=== PATIENT | female | born 1975 | race Caucasian/White ===

== ENCOUNTER 2016-09-20 22:18 | Emergency (ER) | payer MEDICAID ==
[~2016-09-20] VITALS: Ht 177.8 cm; Wt 99.3 kg
[2016-09-20 23:28] LABS: BASOPHIL % 0.5 % (0-2); PLATELET COUNT 295 x10^3mcL (130-400); RED CELL DISTRIBUTION WIDTH 14.5 % (11.5-14.5)
[2016-09-20 23:47] LABS: ALBUMIN 3.4 g/dL (3.4-5.0); ALKALINE PHOSPHATASE 91 U/L (46-116); ALT/SGPT 38 U/L (14-59); AST/SGOT 23 U/L (15-37); BILIRUBIN TOTAL 0.2 mg/dL (0.20-1.00); CARBON DIOXIDE 29.9 mmol/L (21-32); CREATININE SERUM 0.7 mg/dL (0.6-1.0); GFR1 > 60 mL/min; GLUCOSE SERUM 139 mg/dL (74-106); T4(THYROXINE) 5.5 ug/dL (4.7-13.3); TOTAL PROTEIN, SERUM 7.4 g/dL (6.4-8.2)
[2016-09-20 23:51] LABS: CHLORIDE SERUM 106 mmol/L (98-107); POTASSIUM SERUM 3.7 mmol/L (3.5-5.1); SODIUM SERUM 142 mmol/L (136-145)
[2016-09-21 00:08] VITALS: BP 122/51
== END 2016-09-21 01:28 | disposition home or self-care (01) ==
LOC: ED 22:18
PROVIDERS: Emergency Medicine
DX: R55 Syncope and collapse (principal); M25.531 Pain in right wrist; I10 Essential (primary) hypertension; J45.909 Unspecified asthma, uncomplicated; X50.1XXA Overexertion from prolonged static or awkward postures, initial encounter; Y93.89 Activity, other specified; Y99.8 Other external cause status; Y92.89 Other specified places as the place of occurrence of the external cause
CPT/HCPCS: 36415; Q0092

== ENCOUNTER 2017-01-27 23:25 | Emergency (ER) | payer MEDICAID ==
[2017-01-27 23:30] VITALS: BP 140/84
== END 2017-01-28 00:15 | disposition home or self-care (01) ==
LOC: ED 23:25
DX: K04.7 Periapical abscess without sinus (principal); K08.89 Other specified disorders of teeth and supporting structures; I10 Essential (primary) hypertension
CPT/HCPCS: J3490

== ENCOUNTER 2018-04-08 14:07 | Emergency (ER) | payer MEDICAID ==
[~2018-04-08] VITALS: Ht 154.9 cm; Wt 103.9 kg
[2018-04-08 14:14] VITALS: Ht 154.9 cm; Wt 103.9 kg
[2018-04-08 16:52] LABS: BASOPHIL % 1.8 % (0-2); PLATELET COUNT 263 x10^3mcL (130-400); RED CELL DISTRIBUTION WIDTH 12.8 % (11.5-14.5)
[2018-04-08 16:59] LABS: microscopic required? NO
[2018-04-08 17:28] LABS: UA SPECIFIC GRAVITY >=1.030 (1.005-1.035); urine erythrocyte NEGATIVE (NEGATIVE)
[2018-04-08 17:31] LABS: ALKALINE PHOSPHATASE 124 U/L (46-116); ALT/SGPT 121 U/L (14-59); AMYLASE 27 U/L (25-115); AST/SGOT 92 U/L (15-37); BILIRUBIN TOTAL 0.42 mg/dL (0.20-1.00); CALCIUM 8.8 mg/dL (8.5-10.1); CARBON DIOXIDE 29.8 mmol/L (21-32); CHOLESTEROL 176 mg/dL (<200); CREATININE SERUM 0.7 mg/dL (0.6-1.0); GFR1 > 60 mL/min; GLUCOSE SERUM 236 mg/dL (74-106); HDL CHOLESTEROL 39 mg/dL (40-60); LIPASE 128 IU/L (73-393); TOTAL PROTEIN, SERUM 7.6 g/dL (6.4-8.2)
[2018-04-08 17:38] LABS: ALBUMIN 3.3 g/dL (3.4-5.0)
[2018-04-08 17:41] LABS: CHLORIDE SERUM 102 mmol/L (98-107); POTASSIUM SERUM 3.4 mmol/L (3.5-5.1); SODIUM SERUM 139 mmol/L (136-145)
[2018-04-08 19:20] VITALS: BP 110/68
== END 2018-04-08 19:20 | disposition home or self-care (01) ==
LOC: ED 14:07
PROVIDERS: Emergency Medicine
DX: E11.65 Type 2 diabetes mellitus with hyperglycemia (principal); I10 Essential (primary) hypertension; B37.9 Candidiasis, unspecified; J45.909 Unspecified asthma, uncomplicated; E66.01 Morbid (severe) obesity due to excess calories; Z68.41 Body mass index [BMI] 40.0-44.9, adult
CPT/HCPCS: 82962; J1815; J7030

== ENCOUNTER 2018-11-15 17:11 | Emergency (ER) | payer MEDICAID ==
[~2018-11-15] VITALS: Ht 147.3 cm; Wt 95.3 kg
[2018-11-15 17:15] VITALS: Ht 147.3 cm; Wt 95.3 kg
[2018-11-15 18:22] LABS: CALCIUM 9.1 mg/dL (8.5-10.1); CARBON DIOXIDE 24.5 mmol/L (21-32); CHLORIDE SERUM 105 mmol/L (98-107); CREATININE SERUM 0.7 mg/dL (0.6-1.0); GFR1 > 60 mL/min; GLUCOSE SERUM 207 mg/dL (74-106); POTASSIUM SERUM 3.7 mmol/L (3.5-5.1); SODIUM SERUM 140 mmol/L (136-145)
[2018-11-15 18:24] LABS: BASOPHIL % 0.7 % (0-2); PLATELET COUNT 265 x10^3mcL (130-400); RED CELL DISTRIBUTION WIDTH 13.6 % (11.5-14.5)
[2018-11-15 18:27] LABS: ALBUMIN 3.4 g/dL (3.4-5.0); ALKALINE PHOSPHATASE 127 U/L (46-116); ALT/SGPT 102 U/L (14-59); AST/SGOT 69 U/L (15-37); BILIRUBIN TOTAL 0.3 mg/dL (0.20-1.00); LIPASE 153 IU/L (73-393); TOTAL PROTEIN, SERUM 7.8 g/dL (6.4-8.2)
[2018-11-15 20:45] VITALS: BP 122/76
== END 2018-11-15 20:45 | disposition home or self-care (01) ==
LOC: ED 17:11
PROVIDERS: Emergency Medicine
DX: R07.89 Other chest pain (principal); F43.20 Adjustment disorder, unspecified; I10 Essential (primary) hypertension; E11.9 Type 2 diabetes mellitus without complications
CPT/HCPCS: 36415; Q0092